=== PATIENT | male | born 1990 | race Caucasian/White ===

== ENCOUNTER 2021-08-23 10:00 | Emergency (ER) | payer OTHER, SELFPAY ==
[2021-08-23 10:22] VITALS: BP 138/77; PULSE 76; RESP 18; TEMP 37; O2SAT 99; BMI 27.8
--- NOTE | 2021-08-23 10:29 | PC.NURSE ---
CSM fully intact. Strength fully intact. No focal weakness / deficit
[2021-08-23 10:56] LABS: COVID19 -Nasal RAPID Negative (Negative)
== END 2021-08-23 12:32 | disposition left against medical advice (07) ==
PROVIDERS: Emergency Provider Emergency Medicine
DX: Z53.21 Procedure and treatment not carried out due to patient leaving prior to being seen by health care provider (principal); Z20.822 Contact with and (suspected) exposure to COVID-19
CPT/HCPCS: 87635; 99281; C9803

== ENCOUNTER 2023-02-06 10:06 | Emergency (ER) | payer OTHER, SELFPAY ==
[2023-02-06 10:12] VITALS: BP 122/70; PULSE 67; RESP 17; TEMP 36.6; O2SAT 99; BMI 27.5
--- NOTE | 2023-02-06 10:26 | DI.CT.S_ITS ---
PROCEDURE: CT HEAD/BRAIN WO CON INDICATIONS: headache, visual changes TECHNIQUE: Noncontrast 4.5 mm thick angled axial sections acquired from the foramen magnum to the vertex, with coronal and sagittal reformats. For radiation dose reduction, the following was used: automated exposure control, adjustment of mA and/or kV according to patient size. COMPARISON: MRI of brain dated 10/01/2021. FINDINGS: Image quality: Excellent. CSF spaces: Basal cisterns are patent. No extra-axial fluid collections. Ventricles are normal in size and shape. Brain: No midline shift. No intracranial masses or hemorrhage. [place]-white matter interface is normal. Skull and face: Calvarium and visualized facial bones are intact, without suspicious lesions. Sinuses: Visualized sinuses and mastoids are clear. IMPRESSION: No CT evidence of acute intracranial abnormalities. Dictated by: Hans Davila M.D. on 02/06/2023 at 11:11 Approved by: Hans Davila M.D. on 02/06/2023 at 11:12
[2023-02-06] MEDS: SODIUM CHLORIDE 0.9% 1,000 ML 1000 ML IV (10:38)
[2023-02-06 10:51] LABS: Alanine Aminotransferase 21 IU/L (<50); Albumin 4.5 g/dL (3.5-5.0); Albumin Globulin Ratio 1.6 (1.0-2.8); Alkaline Phosphatase 48 U/L (38-126); Aspartate Aminotransferase 28 IU/L (17-59); BUN Creatinine Ratio 15.2 (6-22); Bilirubin Total 0.6 mg/dL (0.2-1.3); Blood Urea Nitrogen 16 mg/dL (9-20); Calcium 9.3 mg/dL (8.4-10.2); Carbon Dioxide 30 mmol/L (22-32); Chloride 100 mmol/L (98-107); Estimated Glomerular Filt Rate > 60 mL/min (>60); Globulin 2.8 g/dL (1.7-4.1); Glucose 101 mg/dL (70-100); HEMOLYSIS < 15 (0-50); Lipase 53 U/L (23-300); Potassium 4.2 mmol/L (3.4-5.1); Sodium 136 mmol/L (137-145); Total Protein 7.3 g/dL (6.3-8.2)
[2023-02-06 10:57] VITALS: BP 122/78; PULSE 55; O2SAT 95
[2023-02-06 11:00] VITALS: BP 125/76; PULSE 52; O2SAT 100
[2023-02-06 11:04] LABS: Add Manual Diff / Slide Review NO; Basophils Absolute Auto 100 /uL (0-100); Basophils Percent Auto 1.2 % (0-2); Eosinophils Absolute Auto 300 /uL (0-450); Eosinophils Percent Auto 6.3 % (2-4); Hemoglobin 14.2 g/dL (13.5-17.5); Lymphocytes Absolute Auto 1200 /uL (1100-4500); Lymphocytes Percent Auto 26.5 % (25-40); Mean Corpuscular HGB Conc 33.8 % (30-36); Mean Corpuscular Hemoglobin 30.8 PG (26-34); Mean Corpuscular Volume 90.9 fL (80-100); Monocytes Absolute Auto 300 /uL (0-900); Monocytes Percent Auto 6.3 % (3-14); Neutrophils Absolute Auto 2700 /uL (1500-7000); Neutrophils Percent Auto 59.7 % (50-75); Platelet Count 206 X10^3/uL (150-400); Red Blood Cell Count 4.63 X10^6/uL (4.5-5.9); Red Cell Distribution Width 14.3 % (11.6-14.8); White Blood Cell Count 4.5 X10^3/uL (4.5-11.0)
[2023-02-06] MEDS: ONDANSETRON 4 MG/2 ML INJ IV (11:06)
[2023-02-06 11:30] VITALS: BP 113/70; PULSE 53; O2SAT 100
--- NOTE | 2023-02-06 11:48 | ED.HA ---
HPI - Headache General Chief Complaint: Headache Stated Complaint: vision changes, N/headach/ T-1 Time Seen by Provider: 02/06/23 10:58 Mode of arrival: Ambulatory History of Present Illness HPI Narrative: Patient is a 32-year-old male without known history but presents today with ongoing headaches. 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 Since he has been back he continues to have headaches about twice a month. He reports that he is visual changes and then gets a pounding headache. He is frustrated because it has not gotten care or workup. He is not taken any Tylenol or Excedrin or ibuprofen. He feels nauseous he is extremely sensitive to light. No real numbness tingling or weakness. Having any fever. Denies head trauma. Related Data Home Medications Medication Instructions Recorded Confirmed No Known Home Medications 08/23/21 02/06/23 Allergies Allergy/AdvReac Type Severity Reaction Status Date / Time cat dander Allergy Severe Nasal Verified 02/06/23 10:16 Discharge Review of Systems Review of Systems ROS Unobtainable: All systems reviewed & are unremarkable except as noted in HPI and below Patient History Social History Smoking Status: Never smoker Smoking Status: Never smoker alcohol intake frequency: 0-2 drinks per day Substance Use Type: does not use Exam Initial Vital Signs Initial Vital Signs: Vital Signs Temperature 97.8 F 02/06/23 10:12 Pulse Rate 67 02/06/23 10:12 Respiratory Rate 17 02/06/23 10:12 Blood Pressure 122/70 02/06/23 10:12 Pulse Oximetry 99 02/06/23 10:12 Oxygen Delivery Method Room Air 02/06/23 10:12 GENERAL: Alert pleasant 32-year-old male and in [no acute] distress. HEENT: Head atraumatic,EOMI, pupils reactive, face symmetric, [moist] mucous membranes. No meningeal signs CARDIOVASCULAR: Regular rate and rhythm without murmurs, rubs or gallops. RESPIRATORY: Breath sounds equal bilaterally, no wheezes rales or rhonchi. ABDOMEN: Soft, nontender. Normoactive bowel sounds all 4 quadrants. No guarding or rebound. EXTREMITIES: Normal range of motion, no clubbing or edema. Neurovascularly intact NEUROLOGICAL: Alert and oriented x4.Normal gait and speech. SKIN: Warm, dry, no laceration, no petechiae, no rashes or lesions. Course Orders Ordered: ED Orders 02/06/23 10:30 Complete Blood Count AUTO DIFF Stat Comprehensive Metabolic Panel Stat Lipase Stat Discontinued Medications Sodium Chloride (Normal Saline 0.9%) 1,000 mls @ 1,000 mls/hr IV BOLUS ONE Stop: 02/06/23 11:24 Last Infusion: 02/06/23 12:09 Dose: 0 mls/hr Documented By: Admin: 02/06/23 10:38 Dose: 1,000 mls/hr Documented By: RB Ketorolac Tromethamine (Ketorolac 30 Mg/Ml Vial) 15 mg IV NOW ONE Stop: 02/06/23 11:59 Last Admin: 02/06/23 12:09 Dose: 15 mg Documented By: SAUL Ondansetron HCl (Ondansetron 4 Mg Odt) 4 mg PO NOW PRN PRN Reason: Nausea And Vomiting Ondansetron HCl (Ondansetron 4 Mg/2 Ml Inj) 4 mg IV NOW PRN PRN Reason: Nausea And Vomiting Last Admin: 02/06/23 11:06 Dose: 4 mg Documented By: MEGAN Vital Signs Vital signs: Vital Signs - 8 hr 02/06/23 11:30 02/06/23 11:30 02/06/23 12:59 Pulse Rate 53 L 60 Blood Pressure 113/70 Pulse Oximetry 100 98 Oxygen Delivery Method Room Air 02/06/23 13:00 02/06/23 13:00 Pulse Rate 63 Blood Pressure 123/72 Pulse Oximetry 95 Oxygen Delivery Method MDM - Headache Lab Data 02/06/23 10:30 02/06/23 10:30 Labs: Lab Results 02/06/23 02/06/23 Range/Units 10:30 10:30 WBC 4.5 (4.5-11.0) X10^3/uL RBC 4.63 (4.5-5.9) X10^6/uL Hgb 14.2 (13.5-17.5) g/dL Hct 42.0 (41-53) % MCV 90.9 (80-100) fL MCH 30.8 (26-34) PG MCHC 33.8 (30-36) % RDW 14.3 (11.6-14.8) % Plt Count 206 (150-400) X10^3/uL Neut % (Auto) 59.7 (50-75) % Lymph % (Auto) 26.5 (25-40) % [place] % (Auto) 6.3 (3-14) % Eos % (Auto) 6.3 H (2-4) % Baso % (Auto) 1.2 (0-2) % Neut # (Auto) 2700 (5983-3195) /uL Lymph # (Auto) 1200 (4890-3042) /uL [place] # (Auto) 300 (0-900) /uL Eos # (Auto) 300 (0-450) /uL Baso # (Auto) 100 (0-100) /uL Sodium 136 L (137-145) mmol/L Potassium 4.2 (3.4-5.1) mmol/L Chloride 100 (98-107) mmol/L Carbon Dioxide 30 (22-32) mmol/L BUN 16 (9-20) mg/dL Creatinine 1.05 (0.66-1.25) mg/dL Estimated GFR > 60 (>60) mL/min BUN/Creatinine Ratio 15.2 (6-22) Glucose 101 H (70-100) mg/dL Calcium 9.3 (8.4-10.2) mg/dL Total Bilirubin 0.6 (0.2-1.3) mg/dL AST 28 (17-59) IU/L ALT 21 (<50) IU/L Alkaline Phosphatase 48 (38-126) U/L Total Protein 7.3 (6.3-8.2) g/dL Albumin 4.5 (3.5-5.0) g/dL Globulin 2.8 (1.7-4.1) g/dL Albumin/Globulin Ratio 1.6 (1.0-2.8) Lipase 53 (23-300) U/L Imaging Data CT scan - head: Radiologist's Impression: PROCEDURE:? CT HEAD/BRAIN WO CON ? INDICATIONS:? headache, visual changes ? TECHNIQUE:? Noncontrast 4.5 mm thick angled axial sections acquired from the foramen magnum to the vertex, with coronal and sagittal reformats.? For radiation dose reduction, the following was used:? automated exposure control, adjustment of mA and/or kV according to patient size.? ? COMPARISON:? MRI of brain dated 10/01/2021. ? FINDINGS:? Image quality:? Excellent.? ? CSF spaces:? Basal cisterns are patent.? No extra-axial fluid collections.? Ventricles are normal in size and shape.? ? Brain:? No midline shift.? No intracranial masses or hemorrhage.? [place]-white matter interface is normal.? ? Skull and face:? Calvarium and visualized facial bones are intact, without suspicious lesions.? ? Sinuses:? Visualized sinuses and mastoids are clear.? ? IMPRESSION:? No CT evidence of acute intracranial abnormalities. ? ? Dictated by: Hans Davila M.D. on 02/06/2023 at 11:11? MDM Narrative Medical decision making narrative: Patient 32-year-old male who has had ongoing headaches for awhile however today seems to be more than normal. He is not taken any kznr-ool-[id number] medications for them he is no focal deficits he has no fever no evidence of meningitis. It sounds as though he has pretty classic migraines with an aura and then developed a pounding headache. His headache improved significantly with Toradol fluids and Zofran. His head CT is negative blood work is overall reassuring. There has been a lot of education about headaches migraine prevention headache log. He is encouraged to follow-up possibly get a Neurology evaluation. I have also encouraged him to take [id number] medications to help his headache. Discharge Plan Departure Patient Disposition: Home Clinical Impression: Migraine Instructions: DI for Migraine Activity Restrictions/Additional Instructions: *You have been diagnosed with migraine headache *What to do: At this time her head CT is negative. You may require migraine prevention medication. Please start keeping a migraine log when you get migraines your symptoms things you eat in etc. you may require Neurology evaluation however not emergent at this time. *Continue to take medications as directed Motrin 600 mg every 6 hours if needed for [id number] pain Tylenol 1000 mg every 6 hours if needed for pkmh-sl-itihwmet pain *Follow up with your primary care provider in 2-3 days or call [phone] *Return to ER if you should have worsening headache persistent vomiting numbness tingling weakness or any new, worsening or concerning symptoms Prescriptions: No Action No Known Home Medications Referrals: Misxuan,MD Brendon [Primary Care Provider] - Stand Alone Forms: Patient Portal/API
[2023-02-06] MEDS: KETOROLAC 30 MG/ML VIAL 15 MG IV (12:09)
[2023-02-06 12:59] VITALS: PULSE 60; O2SAT 98
[2023-02-06 13:00] VITALS: BP 123/72; PULSE 63; O2SAT 95
== END 2023-02-06 13:19 | disposition home or self-care (01) ==
PROVIDERS: Emergency Provider Emergency Medicine
DX: G43.909 Migraine, unspecified, not intractable, without status migrainosus (principal)
CPT/HCPCS: 36415; 70450; 80053; 83690; 85025; 96361; 96374; 96375; 99284; J1885; J2405

== ENCOUNTER 2023-04-05 13:18 | Emergency (ER) | payer OTHER, SELFPAY ==
[2023-04-05 13:35] VITALS: BP 120/70; PULSE 66; RESP 16; TEMP 37.2; O2SAT 99; BMI 29.0
--- NOTE | 2023-04-05 15:00 | ED.HA ---
HPI - Headache General Chief Complaint: Headache Stated Complaint: migraine Time Seen by Provider: 04/05/23 14:19 Source: patient Mode of arrival: Ambulatory Limitations: no limitations History of Present Illness HPI Narrative: Patient is a 32-year-old male. Has a history of migraine headaches. He is here with his . He states that he had an increase in his baseline headache today when he found out that his had an injury while at the gym. He stated that at the time of my exam his headache has improved from the onset. He does have a scheduled appointment with his primary doctor that is not for several weeks. He denies any trauma. No fevers. This does feel like his baseline headache. Related Data Previous Rx's Medication Instructions Recorded zolmitriptan 2.5 mg tablet (Zomig) See Rx Instructions PO .COMPLEX #8 04/05/23 tabs Allergies Allergy/AdvReac Type Severity Reaction Status Date / Time cat dander Allergy Severe Nasal Verified 02/06/23 10:16 Discharge Review of Systems Constitutional Constitutional: Reports system reviewed and no additional complaints, except as documented Eyes Eyes: Reports system reviewed and no additional complaints, except as documented Neurologic Neurologic: Reports system reviewed and no additional complaints, except as documented Hematologic/Lymphatic On Anticoagulants: No Patient History Social History Smoking Status: Never smoker Smoking Status: Never smoker alcohol intake frequency: 0-2 drinks per day Substance Use Type: does not use Exam Initial Vital Signs Initial Vital Signs: Vital Signs Temperature 98.9 F 04/05/23 13:35 Pulse Rate 66 04/05/23 13:35 Respiratory Rate 16 04/05/23 13:35 Blood Pressure 120/70 04/05/23 13:35 Pulse Oximetry 99 04/05/23 13:35 Oxygen Delivery Method Room Air 04/05/23 13:35 HENMT Head: normal to inspection and normocephalic Resp Effort & Inspection: normal respiratory effort Cardio Rate: regular rate Neuro General: patient alert, patient awake, patient oriented x3 and moves all extremities Course Orders Ordered: Discontinued Medications Ketorolac Tromethamine (Ketorolac 30 Mg/Ml Vial) 30 mg IM NOW ONE Stop: 04/05/23 15:02 Vital Signs Vital signs: Vital Signs - 8 hr 04/05/23 13:35 Temperature 98.9 F Pulse Rate 66 Respiratory Rate 16 Blood Pressure 120/70 Pulse Oximetry 99 Oxygen Delivery Method Room Air MDM - Headache MDM Narrative Medical decision making narrative: Patient has a history of migraine headaches. He would an increase in his baseline headache today when he found out that his was injured. He feels like his headache is improved. He was given Toradol. Will discharge patient home with return precautions. No indication for imaging studies. Low suspicion for meningitis. Low suspicion for intracranial hemorrhage. Discharge Plan Departure Patient Disposition: Home Clinical Impression: Migraine Instructions: DI for Migraine Activity Restrictions/Additional Instructions: I do recommend that you keep all of your scheduled medical appointments. Use the medication for your headaches as needed and as directed. Return to the emergency department for new or worsening symptoms. Prescriptions: New zolmitriptan [Zomig] 2.5 mg tablet See Rx Instructions .ROUTE .COMPLEX Qty: 8 0RF Rx Instructions: take 1 tab at onset of headache; if no relief may repeat 1 tab after at least 2 hrs; max = 4 tabs/24 hr Referrals: ProviderShiloh [Primary Care Provider] - Stand Alone Forms: Patient Portal/API
[2023-04-05] MEDS: KETOROLAC 30 MG/ML VIAL IM (15:16)
[2023-04-05 15:21] VITALS: BP 134/77; PULSE 65; RESP 16; O2SAT 100
== END 2023-04-05 15:25 | disposition home or self-care (01) ==
PROVIDERS: Emergency Provider Emergency Medicine
DX: G43.909 Migraine, unspecified, not intractable, without status migrainosus (principal)
CPT/HCPCS: 96372; 99283; J1885